=== PATIENT | female | born 1930 | race Caucasian/White ===

== ENCOUNTER → 2016-11-26 | Outpatient (REF) | payer MEDICARE ==
[2016-11-29 14:11] LABS: ANTI SCLERODERMA ANTIBODIES <0.2 AI (0.0-0.9)
== END ==
LOC: M LAB REF 16:24
DX: I73.00 Raynaud's syndrome without gangrene (principal)

== ENCOUNTER → 2019-03-26 | Outpatient (REF) | payer MEDICARE ==
[2019-03-26 19:51] LABS: FERRITIN 20 NG/ML (8-252); IRON (FE) 69 UG/DL (50-170)
== END ==
LOC: M LAB REF 16:34
PROVIDERS: ATTEND Nurse Practitioner Adult Health
DX: D64.9 Anemia, unspecified (principal)

== ENCOUNTER → 2019-07-26 | Outpatient (REF) | payer MEDICARE | LOC: M LAB REF 18:51 | PROVIDERS: ATTEND Surgery | DX: L82.0 Inflamed seborrheic keratosis (principal) ==

== ENCOUNTER → 2020-12-03 | Outpatient (CLI) | payer MEDICARE ==
--- NOTE | 2020-12-03 16:41 | REP ---
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 COMPARISON: None. TECHNIQUE: The procedure was performed by Carina White [facility], under the direct supervision of Dr. Pressley. The procedure was performed with Love Martinez from speech pathology present. 5 ml aliquots of thin, pudding, mixed fruit, and soft food consistency barium was administered. FINDINGS: Penetration was visualized with thin consistency barium. The detailed report of this examination will be provided by speech pathology. IMPRESSION: Penetration with thin consistency barium, a complete detailed report will be provided by speech pathology. 2.9 minutes of fluoroscopy time was utilized for this procedure. Some fluoroscopic images are performed with last image hold technology. These images require no additional radiation <Electronically signed by Carina White > 12/03/20 1518 <Electronically signed by Shemar Pressley > 12/03/20 1933
== END ==
LOC: M ST 14:08
PROVIDERS: ATTEND Otolaryngology
DX: K21.9 Gastro-esophageal reflux disease without esophagitis (principal)